=== PATIENT | female | born 1955 | race Caucasian/White ===

== ENCOUNTER 2021-01-20 16:14 | Emergency (ER) | payer MEDICARE, MEDICAID, SELFPAY ==
--- NOTE | ~2021-01-20 | XR_ITS ---
EXAMINATION: XR knee LT min 4V DATE: 01/20/2021 17:03 INDICATION: Left knee pain. TECHNIQUE: 7 views of left knee were obtained. COMPARISON: None. FINDINGS: Bone alignment is normal. No acute fracture. There are old healed fractures of tibial and f ibular diaphyses. There are old healed fractures of left femur with multiple plates with screws. Left knee demonstrates mild tricompartmental osteoarthritis characterized by tiny marginal osteophytes. N o knee joint effusion. IMPRESSION: 1. Mild left knee osteoarthritis. Reviewed, dictated and finalized at location A.
--- NOTE | 2021-01-20 16:21 | ED.LOWEXIN ---
HPI - Extremity Injury (Lower) General Chief Complaint: Extremity Injury, Lower Stated Complaint: Possible injury to left Knee Time Seen by Provider: 01/20/21 16:21 Source: patient, family and RN notes reviewed History of Present Illness HPI Narrative: Patient is 65-year-old female who presents the urgent care with family member with complaints of left knee pain. Patient denies of any trauma, injury or fall. States is been hurting her for the last couple weeks and she has a history of a bone disorder. Patient states that she has a metal torres in her left femur and is also fractured her left knee in the past. Patient states she has been taking naproxen for the pain. No other acute complaints. Patient uses a walker and a Hoveround. No acute distress noted. Patient and family member aware of the plan of care. Some parts of this dictation were generated by voice recognition software and may contain typographical and/or grammatical inaccuracies. Related Data Home Medications Medication Instructions Recorded Confirmed diclofenac potassium 50 mg PO DAILY 01/20/21 01/20/21 enalapril maleate 2.5 mg PO DAILY 01/20/21 01/20/21 metformin 1,000 mg PO DAILY 01/20/21 01/20/21 montelukast 10 mg PO DAILY 01/20/21 01/20/21 naproxen 500 mg PO PRN PRN 01/20/21 01/20/21 paroxetine HCl 30 mg PO DAILY 01/20/21 01/20/21 risperidone 2 mg PO DAILY 01/20/21 01/20/21 Allergies Allergy/AdvReac Type Severity Reaction Status Date / Time No Known Allergies Allergy Unverified 05/16/16 13:35 Review of Systems Review of Systems: CONSTITUTIONAL: Denies fever, chills, or sweats. EYES: Denies visual changes, redness, or discharge. ENT: Denies rhinorrhea, congestion, sore throat, or otalgia. CARDIOVASCULAR: Denies chest pain, palpitations, or edema. RESPIRATORY: Denies cough or dyspnea. GASTROINTESTINAL: Denies abdominal pain, nausea, vomiting, or diarrhea. GENITOURINARY: Denies dysuria or hematuria. SKIN: Denies rash or itching. MUSCULOSKELETAL: Reports of left knee pain NEUROLOGIC: Denies headache, numbness, or weakness. All other systems reviewed are negative, except as documented in HPI. PMFSH Social History Social History Gender identity (if verbalized by the patient): Female Comments At the time of my signature, I reviewed and agree with the nursing past medical, surgical, social, and family history. There is no relevant family history pertinent to the patient complaint. Exam Narrative: GENERAL: This is a well-nourished, well-developed patient, in no apparent distress. HEAD: normocephalic, atraumatic. EYES: PERRL. Sclera clear/white. Vision is grossly intact. EARS: External ears normal NOSE: External nose normal with no obvious nasal discharge, nares without redness, no rhinorrhea. THROAT: Mucous membranes moist NECK: Neck supple CARDIOVASCULAR: Regular rate and rhythm without murmurs, gallops, or rubs. RESPIRATORY: Clear to auscultation. Breath sounds equal bilaterally. No wheezes, rales, or rhonchi. SKIN: warm, intact with no suspicious lesions or rash, good texture and turgor. NEURO: awake, alert, and oriented to person, place and time. There were no obvious focal neurologic abnormalities. EXTREMITIES: No obvious deformity or fracture noted to the left lower extremity. No edema, ecchymosis or erythema noted to the left knee. Range of motion to left knee within normal limits without exacerbated pain. Exacerbated pain with weightbearing. Positive strong left pedal pulse with capillary refill less than 2 seconds. Course Vital Signs Vital signs: Vital Signs Temperature 98.7 F 01/20/21 16:30 Pulse Rate 95 01/20/21 16:30 Respiratory Rate 20 01/20/21 16:30 Blood Pressure 131/67 01/20/21 16:30 Pulse Oximetry 95 01/20/21 16:30 Temperature 98.7 F 01/20/21 16:30 Pulse Rate 95 01/20/21 16:30 Respiratory Rate 20 01/20/21 16:30 Blood Pressure 131/67 01/20/21 16:30 Pulse Oximetry 95 01/20/21 16:30 Re
[2021-01-20 16:30] VITALS: BP 131/67; PULSE 95; RESP 20; TEMP 37.1; O2SAT 95
== END 2021-01-20 17:25 | disposition home or self-care (01) ==
PROVIDERS: Emergency Provider Nurse Practitioner Family; PCP Nurse Practitioner Family
DX: M17.12 Unilateral primary osteoarthritis, left knee (principal); E78.00 Pure hypercholesterolemia, unspecified; I10 Essential (primary) hypertension; E11.9 Type 2 diabetes mellitus without complications
CPT/HCPCS: 73564; 99203; G0463